=== PATIENT | female | born 1970 | race Caucasian/White ===

== ENCOUNTER → 2017-10-07 | Outpatient (CLI) | payer BC ==
[~2017-10-07] MED LIST: ALBU2.5V36 INH; ALBU8.5H IH; ALPR-1 PO; AMOX-559 PO; ATOM80CA3 PO; BEN20 PO; BENA40TA52 PO; BUSP15TA69 PO; DUL100/5PT INH; DUL100/5PT PUFF; FERR-1 PO; FLUT9.9S; GUAI120L3 PO; HYDR-385 PO; HYDR-4228 PO; IBU800 PO; IBUP800T37 PO; KET10 PO; LEVO-85 PO; LEVO750T25 PO; LISD30PT PO; LOR5/325 PO; LOSA-54 PO; METR-1 PO; PARO-243 PO; PER PO; PRED20TA6 PO; TRAZ-163 PO
[2017-10-07 09:08] LABS: PLATELET COUNT, AUTOMATED 173 K/uL (150-450)
[2017-10-07 10:25] LABS: LDL CHOLESTEROL 110 mg/dl
== END ==
LOC: LAB 08:23
PROVIDERS: ATTEND Nurse Practitioner Family
DX: I10 Essential (primary) hypertension (principal); F32.9 Major depressive disorder, single episode, unspecified; Z79.899 Other long term (current) drug therapy
CPT/HCPCS: 36415; 82040; 82247; 82310; 82374; 82435; 82465; 82565; 82947; 83718; 84075; 84132; 84155; 84295; 84443; 84450; 84460; 84478; 84520; 85025

== ENCOUNTER 2018-06-23 21:39 | Emergency (ER) | payer BC ==
[~2018-06-23 21:39] MED LIST changes: +BENA40TA53 PO; -TRAZ-163 PO; +TRAZ100T31 PO
[2018-06-23 22:57] LABS: PLATELET COUNT, AUTOMATED 236 K/uL (150-450)
--- NOTE | 2018-06-23 23:17 | RADIOLOGY IMAGING REPORT ---
[facility] PATIENT NAME: Linda Clarke : 1970 MR: [id number] V: [id number] EXAM DATE: [id number] ORDERING PHYSICIAN: HARI CHAPA TECHNOLOGIST: Location: [facility] - [place] Patient: Linda Clarke : 1970 Visit/Account:[id number] Date of Sevice: 06/23/2018 PORTABLE CHEST: Indication: Dyspnea. Technique: A single frontal film was obtained. Comparison: None available. Skeletal and soft tissue structures: Intact and unremarkable. Heart and mediastinum: Within normal limits. Lung sanchez: Well-expanded and clear. Pleural spaces: Unremarkable. Impression: No acute process. Report Dictated By: Fernando Combs MD at 06/23/2018 11:08 PM Report E-Signed By: Fernando Combs MD at 06/23/2018 11:13 PM WSN:[id number]
[2018-06-24] MEDS ORDERED: KETOROLAC 15 MG/ML VIAL IVP ONE (00:10)
[2018-06-24] MEDS ORDERED: NS(*) 0.9% 1000 ML BAG 1,000 ML IV ONE (00:10)
[2018-06-24] MEDS ORDERED: ONDANSETRON 4 MG/2 ML VIAL IVP ONE (00:10)
[2018-06-24 00:54] VITALS: BP 135/82
[2018-06-24] MEDS ORDERED: ONDA4TAB9 PO (01:05)
--- NOTE | 2018-06-24 01:07 | ER Report ---
History and Physical Time Seen By MD: 22:30 Hx. of Stated Complaint: states she passed out because her bp is 180/93. has not felt well for a couple weeks, been exposed to the flu, n/v most of today. says she can't move her rt up, picks arm up to show there's some wrong with it HPI/ROS CHIEF COMPLAINT: Syncope HISTORY OF PRESENT ILLNESS: 48-year-old female presents after syncopal episode. She states that she has felt ill for the past 2-3 days and has recently been exposed to flu. She reports that she has had nausea and vomiting multiple times. Vomited is always food contents or clear is never bilious and not bloody. She has had loose stools though no true diarrhea. She does not have abdominal pain. She has not have URI symptoms. She does not have chest pain or dyspnea. She has attempted Pepto-Bismol but has not helped. Because of vomiting she has not been able to take her home medications and her blood pressure is elevated. She does not have headache or blurred vision. This afternoon she states that she felt more and more lightheaded. She states that she was in her house and the next thing she knew she woke up on the floor and had knocked a side a table. At this point she knew she needed to come to the emergency department. She did not have preceding or subsequent chest pain, headache, shortness breath, and notes no injury from the fall. She does state that she has significant right shoulder pain. She states that this has been ongoing and she recently exacerbated that when she was writing a lot. She has had no injury and does not feel that it is any worse today. Pain radiates from shoulder to elbow. REVIEW OF SYSTEMS: Constitutional: No fever, no chills. Eyes: No discharge. ENT: No sore throat. Cardiovascular: No chest pain, no palpitations. Respiratory: No cough, no shortness of breath. Gastrointestinal: above Genitourinary: no dysuria Musculoskeletal: No back pain; otherwise above Skin: No rashes. Neurological: No headache. Remainder of the 14 system rev: Yes Allergies: Coded Allergies: erythromycin base (Verified Allergy, Mild, FEVER COLD SWEATS, 06/23/18) Home Meds Active Scripts Losartan/Hydrochlorothiazide (LOSARTAN-HCTZ 100-25 MG TAB) 1 Each Tablet, 1 TAB PO QDAY, #90 TAB 1 Refill Prov:MEGANERENTANAJORGE LOPEZ [facility] 05/16/18 Alprazolam 0.25 Mg Tab (XANAX 0.25 MG TAB) 0.25 Mg Tablet, 1 TAB PO BID PRN for ANXIETY, #15 TAB 0 Refills Prov:TANA NETTLES APRN [facility] 03/24/18 Atomoxetine Hcl (STRATTERA) 80 Mg Capsule, 1 TAB PO QDAY, #30 CAP 5 Refills Prov:TANA NETTLES APRN [facility] 01/29/18 Hydroxyzine Hcl (HYDROXYZINE HCL) 50 Mg Tablet, 0.5-1 TAB PO QID PRN for ANXIETY, #30 TAB 1 Refill Prov:TANA NETTLES APRN [facility] 10/03/17 Mometasone/Formoterol (DULERA 100 MCG/5 MCG INHALER) 13 Gm Inh, 2 PUFF INH BID, #1 INH 5 Refills Prov:PALAK ROB 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) Hx Alcohol Use: Yes (DAILY) Constitutional Vital Sign - Last 24 Hours 06/23/18 06/23/18 06/23/18 06/23/18 21:43 21:52 21:54 22:00 Temp 97.8 Pulse 64 65 Resp 20 24 B/P (MAP) 164/90 147/87 (107) Pulse Ox 95 93 O2 Delivery Room Air 06/23/18 06/23/18 06/23/18 06/23/18 22:09 22:24 22:30 22:39 Pulse 63 63 64 Resp 15 15 53 B/P (MAP) 142/85 (104) Pulse Ox 94 94 95 06/23/18 06/23/18 06/23/18 06/23/18 22:54 22:59 23:00 23:14 Pulse 60 64 65 Resp 21 12 11 B/P (MAP) 147/85 (105) Pulse Ox 96 94 95 06/23/18 06/23/18 06/23/18 06/23/18 23:29 23:30 23:44 23:49 Pulse 70 64 66 Resp 10 13 10 B/P (MAP) 125/76 (92) Pulse Ox 93 95 95 06/24/18 06/24/18 06/24/18 00:00 00:19 00:24 Pulse 59 69 Resp 13 B/P (MAP) 132/86 (101) Pulse Ox 94 Physical Exam General Appearance: The patient is alert, has no immediate need for airway protection and no signs of toxicity. [ ] Eyes: Pupils equal and round no pallor or injection. No nystagmus ENT, Mouth: Mucous membranes are moist. Respiratory: There are no retractions, lungs are clear to auscultation. Cardiovascular: Regular rate and rhythm. no m/r/g Gastrointestinal: Abdomen is soft and non tender, no masses, bowel sounds normal. Neurological: alert, oriented x 3, moves all ext, no focal weakness Skin: Warm and dry, no rashes. Musculoskeletal: Neck is supple non tender. Extremities are nontender, nonswollen and have full range of motion with exception of r arm. Pt has pain with abduction > 30 deg. She has full passive ROM though with pain r shoulder. She has ttp r lateral deltoid, through forearm to R elbow. She has full extension of r elbow. No bony stepoffs. 5/5 ms hand, nl pulses, nl cap refill DIFFERENTIAL DIAGNOSIS: After history and physical exam differential diagnosis was considered for syncope including but not limited to vasovagal syncope, arrhythmia, dehydration, and blood loss, fracture, dislocation, acs, pe, or other emergent etiology of symptoms. Medical Decision Making Data Points Result Diagram: 06/23/18224606/23/182246 Laboratory Hematology Test 06/23/18 21:44 06/23/18 21:56 06/23/18 22:47 Urine Color Yellow Urine Clarity Slightly-cloudy Urine pH 6.0 pH (4.8-9.5) Urine Specific [place] 1.020 Urine Protein Negative mg/dL (NEGATIVE) Urine Glucose (UA) Negative mg/dL (NEGATIVE) Urine Ketones 20 mg/dL (NEGATIVE) Urine Blood Negative (NEGATIVE) Urine Nitrite Negative (NEGATIVE) Urine Bilirubin Negative (NEGATIVE) Urine Urobilinogen Negative mg/dL (0.2-1.9) Urine Leukocyte Esterase Negative (NEGATIVE) Urine RBC <1 /HPF (0-2/HPF) Urine WBC 2 /HPF (0-5/HPF) Urine Squamous Epithelial Cells Many /LPF (</=FEW) Urine Bacteria Few /HPF (NONE-FEW) Urine Mucus Few /HPF (NONE-FEW) Urine HCG, Qualitative Negative (NEGATIVE) Influenza Virus Type A (PCR) Negative (NEGATIVE) Influenza Virus Type B (PCR) Negative (NEGATIVE) Red Blood Count 4.88 M/uL (4.17-5.56) Mean Corpuscular Volume 84.8 fL (80.0-96.0) Mean Corpuscular Hemoglobin 29.3 pg (26.0-33.0) Mean Corpuscular Hemoglobin Concent 34.5 g/dL (32.0-36.0) Red Cell Distribution Width 12.9 % (11.5-14.5) Mean Platelet Volume 10.1 fL (7.2-11.1) Neutrophils (%) (Auto) 71.5 % (39.4-72.5) Lymphocytes (%) (Auto) 18.5 % (17.6-49.6) Monocytes (%) (Auto) 8.8 % (4.1-12.4) Eosinophils (%) (Auto) 0.4 % (0.4-6.7) Basophils (%) (Auto) 0.8 % (0.3-1.4) Nucleated RBC Relative Count (auto) 0.1 /100WBC Neutrophils # (Auto) 8.5 K/uL (2.0-7.4) Lymphocytes # (Auto) 2.2 K/uL (1.3-3.6) Monocytes # (Auto) 1.0 K/uL (0.3-1.0) Eosinophils # (Auto) 0.0 K/uL (0.0-0.5) Basophils # (Auto) 0.1 K/uL (0.0-0.1) Nucleated RBC Absolute Count (auto) 0.01 K/uL Sodium Level 136 mmol/L (137-145) Potassium Level 3.4 mmol/L (3.5-5.0) Chloride Level 104 mmol/L (98-107) Carbon Dioxide Level 24 mmol/L (22-31) Blood Urea Nitrogen 11 mg/dl (7-18) Creatinine 0.60 mg/dl (0.52-1.04) Glomerular Filtration Rate Calc > 60.0 Random Glucose 112 mg/dl (75-110) Calcium Level 9.0 mg/dl (8.4-10.2) Magnesium Level 1.8 mg/dl (1.7-2.2) Total Bilirubin 0.5 mg/dl (0.2-1.3) Aspartate Amino Transf (AST/SGOT) 40 U/L (0-35) Alanine Aminotransferase (ALT/SGPT) 53 U/L (0-56) Alkaline Phosphatase 72 U/L (0-126) Troponin I < 0.012 ng/ml Total Protein 7.0 g/dl (6.3-8.2) Albumin 4.3 g/dl (3.5-5.0) Chemistry Test 06/23/18 21:44 06/23/18 21:56 06/23/18 22:47 Urine Color Yellow Urine Clarity Slightly-cloudy Urine pH 6.0 pH (4.8-9.5) Urine Specific [place] 1.020 Urine Protein Negative mg/dL (NEGATIVE) Urine Glucose (UA) Negative mg/dL (NEGATIVE) Urine Ketones 20 mg/dL (NEGATIVE) Urine Blood Negative (NEGATIVE) Urine Nitrite Negative (NEGATIVE) Urine Bilirubin Negative (NEGATIVE) Urine Urobilinogen Negative mg/dL (0.2-1.9) Urine Leukocyte Esterase Negative (NEGATIVE) Urine RBC <1 /HPF (0-2/HPF) Urine WBC 2 /HPF (0-5/HPF) Urine Squamous Epithelial Cells Many /LPF (</=FEW) Urine Bacteria Few /HPF (NONE-FEW) Urine Mucus Few /HPF (NONE-FEW) Urine HCG, Qualitative Negative (NEGATIVE) Influenza Virus Type A (PCR) Negative (NEGATIVE) Influenza Virus Type B (PCR) Negative (NEGATIVE) White Blood Count 11.9 k/uL (4.5-11.0) Red Blood Count 4.88 M/uL (4.17-5.56) Hemoglobin 14.3 g/dL (12.0-16.0) Hematocrit 41.3 % (34.0-47.0) Mean Corpuscular Volume 84.8 fL (80.0-96.0) Mean Corpuscular Hemoglobin 29.3 pg (26.0-33.0) Mean Corpuscular Hemoglobin Concent 34.5 g/dL (32.0-36.0) Red Cell Distribution Width 12.9 % (11.5-14.5) Platelet Count 236 K/uL (150-450) Mean Platelet Volume 10.1 fL (7.2-11.1) Neutrophils (%) (Auto) 71.5 % (39.4-72.5) Lymphocytes (%) (Auto) 18.5 % (17.6-49.6) Monocytes (%) (Auto) 8.8 % (4.1-12.4) Eosinophils (%) (Auto) 0.4 % (0.4-6.7) Basophils (%) (Auto) 0.8 % (0.3-1.4) Nucleated RBC Relative Count (auto) 0.1 /100WBC Neutrophils # (Auto) 8.5 K/uL (2.0-7.4) Lymphocytes # (Auto) 2.2 K/uL (1.3-3.6) Monocytes # (Auto) 1.0 K/uL (0.3-1.0) Eosinophils # (Auto) 0.0 K/uL (0.0-0.5) Basophils # (Auto) 0.1 K/uL (0.0-0.1) Nucleated RBC Absolute Count (auto) 0.01 K/uL Glomerular Filtration Rate Calc > 60.0 Calcium Level 9.0 mg/dl (8.4-10.2) Magnesium Level 1.8 mg/dl (1.7-2.2) Total Bilirubin 0.5 mg/dl (0.2-1.3) Aspartate Amino Transf (AST/SGOT) 40 U/L (0-35) Alanine Aminotransferase (ALT/SGPT) 53 U/L (0-56) Alkaline Phosphatase 72 U/L (0-126) Troponin I < 0.012 ng/ml Total Protein 7.0 g/dl (6.3-8.2) Albumin 4.3 g/dl (3.5-5.0) Urinalysis Test 06/23/18 21:44 Urine Color Yellow Urine Clarity Slightly-cloudy Urine pH 6.0 pH (4.8-9.5) Urine Specific [place] 1.020 Urine Protein Negative mg/dL (NEGATIVE) Urine Glucose (UA) Negative mg/dL (NEGATIVE) Urine Ketones 20 mg/dL (NEGATIVE) Urine Blood Negative (NEGATIVE) Urine Nitrite Negative (NEGATIVE) Urine Bilirubin Negative (NEGATIVE) Urine Urobilinogen Negative mg/dL (0.2-1.9) Urine Leukocyte Esterase Negative (NEGATIVE) Urine RBC <1 /HPF (0-2/HPF) Urine WBC 2 /HPF (0-5/HPF) Urine Squamous Epithelial Cells Many /LPF (</=FEW) Urine Bacteria Few /HPF (NONE-FEW) Urine Mucus Few /HPF (NONE-FEW) Urine HCG, Qualitative Negative (NEGATIVE) ED Course/Re-evaluation ED Course 48-year-old female presents after syncopal episode. Of note she has been vomiting multiple times 2 days. She does not have abdominal pain or tenderness. She does not have signs or symptoms of ACS, PE, or other emergent etiology. Labs are unremarkable with exception of consistency with mild dehydration. Patient feels better after IV fluids, Toradol, Zofran. She has R arm pain but no acute findings; will place in sling for use as needed. She understands SRp's. Decision to Disposition Date: Jun 24, 2018 Decision to Disposition Time: 00:56 Depart Departure Latest Vital Signs Vital Signs Date Time Temp Pulse Resp B/P (MAP) Pulse Ox O2 Delivery O2 Flow Rate FiO2 06/24/18 00:24 69 06/24/18 00:19 13 94 06/24/18 00:00 132/86 (101) 06/23/18 21:52 97.8 06/23/18 21:43 Room Air Impression: Primary Impression: Vomiting Additional Impression: Syncope Condition: Improved Disposition: HOME OR SELF-CARE Referrals: TANA NETTLES APRN-C (PCP) 2 Days New Scripts Ondansetron 4 Mg Odt (ONDANSETRON 4 MG ODT) 4 Mg Tab.rapdis 4 MG PO Q8H for Nausea, #10 TAB Prov: HARI CHAPA MD 06/24/18 Patient Instructions: Acute Nausea and Vomiting (ED), Syncope (ED) Additional Instructions: Please return for worsening symptoms, not tolerating fluids, passing out again, or any concerns. Problem Qualifiers Primary Impression: Vomiting Vomiting type: unspecified Vomiting Intractability: non-intractable Nausea presence: with nausea Qualified Codes: R11.2 - Nausea with vomiting, unspecified Additional Impression: Syncope Syncope type: unspecified Qualified Codes: R55 - Syncope and collapse HARI CHAPA MD Jun 24, 2018 01:07
[2018-06-24] MEDS ORDERED: ONDANSETRON 4 MG ODT TH SL ONE (01:10)
--- NOTE | 2018-06-24 02:07 | EKG ---
FACILITY: [facility] - [place] PATIENT NAME: LETICIA STONER : [id number] MR: [id number] V: [id number] EXAM DATE: ORDERING PHYSICIAN: HARI CHAPA TECHNOLOGIST: JUDE Melendez Reason : DYSPNEA Blood Pressure : / mmHG Vent. Rate : 062 BPM Atrial Rate : 062 BPM P-R Int : 144 ms QRS Dur : 098 ms QT Int : 490 ms P-R-T Axes : 051 058 066 degrees QTc Int : 497 ms Sinus rhythm Nonspecific ST findings anteriorly Prolonged QT Abnormal ECG No previous ECGs available Confirmed by ALEJANDRINA DARLING ([id number] on 06/24/2018 3:25:40 AM Referred By: Confirmed By:ALEJANDRINA DARLING
== END 2018-06-24 01:18 | disposition home or self-care (01) ==
LOC: ER 22:26
DX: R55 Syncope and collapse (principal); R11.2 Nausea with vomiting, unspecified
CPT/HCPCS: 71045; 81001; 81025; 83735; 84484; 85025; 87502; 93005; 96374; 96375; 99284; A4565; J1885; J2405; J7030; S0119; 82040; 82247; 82310; 82374; 82435; 82565; 82947; 84075; 84132; 84155; 84295; 84450; 84460; 84520; 96361